=== PATIENT | male | born 1990 | race Caucasian/White ===

== ENCOUNTER 2016-09-20 21:55 | Emergency (ER) | payer BC ==
--- NOTE | 2016-09-24 13:14 | ER ---
ADMIT: 09/20/2016 RM/LOC: ER [facility] MR#: [id number] [place], [place] [id number] COHEN EARL NICHOLAS [address] [place] [address] Emergency Room Report SEX: M AGE: 26 : 1990 DATE: 09/20/2016 CHIEF COMPLAINT: Back pain. HISTORY OF PRESENT ILLNESS: A 26-year-old, male, who presents with two days of low back pain. States he was sweeping his floor at home two days ago, kind of twisted. He had pain in his lower back. Rates it as severe, 10/10. Denies radiation. Describes it as aching. Denies any recent fever, chills, constipation, incontinence, nausea, vomiting, problems urinating, difficulty walking, numbness, weakness. Worse with movement. He has been using naproxen over the counter. COURSE IN THE EMERGENCY ROOM: GENERAL: The patient was seen and examined, afebrile and nontoxic. No acute distress. BACK: He does have some tenderness to palpation over the paravertebral musculature in the low back. No midline tenderness. No real muscle spasm on exam. He is able to ambulate without difficulty. NEURO: He is alert and oriented. Motor and sensation is intact. Reflexes are normal bilaterally. SKIN: Warm and dry. Negative straight leg raise testing. EXTREMITIES: Nontender. No pedal edema. I did give him 15 mg of Toradol IM prior to discharge since he would like to return to work. IMPRESSION: Low back pain. DISPOSITION: The patient was discharged to use naproxen [id number] two tabs p.o. b.i.d. for 7 days with food. I also provided him a script for Selah 5/325 mg tabs one to two tabs p.o. every 4-6 hours as needed for pain #20. He is to follow up with Dr. Wells if he is not improving. Ice and heat for comfort. We cautioned him not to use the Selah at work, do not use Tylenol if using Selah or Percocet, cannot drive after taking the narcotics. Questions sought and answered to the best of my ability and to the patient's satisfaction. Discharged in stable condition. SHRUTHI Gaines / Zion Lee MD / jefe JOB #: [id number] CC: Zion Lee MD, Attending Physician Stevenson Wells MD, Family Physician
== END 2016-09-21 00:10 | disposition home or self-care (01) ==
LOC: ER 21:55
DX: M54.5 Low back pain (principal); X50.1XXA Overexertion from prolonged static or awkward postures, initial encounter; Y92.009 Unspecified place in unspecified non-institutional (private) residence as the place of occurrence of the external cause